=== PATIENT | female | born 1945 | race Caucasian/White ===

== ENCOUNTER 2021-05-17 13:45 | Emergency (ER) | payer OTHER, MEDICARE ==
[~2021-05-17] VITALS: Ht 154.9 cm; Wt 64.9 kg
[2021-05-17] MEDS ORDERED: HYDR1TAB94 PO (15:50)
== END 2021-05-17 16:00 | disposition home or self-care (01) ==
LOC: ER 13:45
DX: M25.561 Pain in right knee (principal); M25.521 Pain in right elbow; I25.2 Old myocardial infarction; W01.0XXA Fall on same level from slipping, tripping and stumbling without subsequent striking against object, initial encounter
CPT/HCPCS: 73070; 73562-RT; 73620; 99283-25

== ENCOUNTER 2023-08-08 14:17 | Emergency (ER) | payer MEDICARE ==
[~2023-08-08] VITALS: Ht 152.4 cm; Wt 56.2 kg
[~2023-08-08 14:17] MED LIST: HYDR1TAB94 PO
[2023-08-08 14:53] VITALS: BP 108/61
[2023-08-08 15:36] LABS: BASOPHILS ABSOLUTE AUTO 0.07 K/mm3 (0.00-0.23); BASOPHILS PERCENT AUTO 1 % (0-2); EOSINOPHILS ABSOLUTE AUTO 0.28 K/mm3 (0.00-0.68); EOSINOPHILS PERCENT AUTO 4 % (0-6); Hematocrit 39.1 % (33.0-51.0); Hemoglobin 12.8 g/dL (11.5-16.0); IMMATURE GRAN ABSOLUTE AUTO 0.03 K/mm3 (0.00-0.10); IMMATURE GRAN PERCENT AUTO 0 % (0-1); LYMPHOCYTES ABSOLUTE AUTO 1.69 K/mm3 (0.84-5.20); LYMPHOCYTES PERCENT AUTO 22 % (21-46); MONOCYTES ABSOLUTE AUTO 0.76 K/mm3 (0.16-1.47); MONOCYTES PERCENT AUTO 10 % (4-13); Mean Corpuscular HGB 28.3 pg (26.0-34.0); Mean Corpuscular HGB Conc 32.7 g/dL (31.5-36.5); Mean Corpuscular Volume 87 fL (80-100); NEUTROPHILS ABSOLUTE AUTO 5.01 K/mm3 (1.96-9.15); NEUTROPHILS PERCENT AUTO 64 % (41-73); Platelet Count 263 K/mm3 (150-400); RDW Coefficient Variation 13.5 % (11.7-14.2); RDW Standard Deviation 42.7 fL (35.1-46.3); Red Blood Cell Count 4.52 M/mm3 (3.80-5.20); White Blood Cell Count 7.84 K/mm3 (4.00-11.30)
[2023-08-08 15:57] LABS: Albumin, Blood 3.5 g/dL (3.4-5.0); Albumin/Globulin Ratio 0.8 (0.8-1.8); Bilirubin, Total 0.5 mg/dL (0.1-1.0); Bun/Creatinine Ratio 15.6 (12.0-20.0); Creatinine, Blood 1.22 mg/dL (0.40-1.00); Globulin, Blood 4.5 g/dL (2.2-4.0); Uric Acid, Blood 7.3 mg/dL (2.6-6.0)
[2023-08-08] MEDS ORDERED: ATORVASTATIN CA20 MG PO (16:15)
[2023-08-08] MEDS ORDERED: PRASUGREL HCL10 MG PO (16:16)
[2023-08-08] MEDS ORDERED: METO25ER PO (16:16)
[2023-08-08] MEDS ORDERED: LISI5 PO (16:16)
[2023-08-08] MEDS ORDERED: IBUP600 PO (16:30)
[2023-08-08] MEDS ORDERED: COLCHICINE0.6 MG PO (16:30)
== END 2023-08-08 16:15 | disposition home or self-care (01) ==
LOC: ER 14:17
PROVIDERS: Emergency Medicine
DX: M10.9 Gout, unspecified (principal); I25.2 Old myocardial infarction; Z88.0 Allergy status to penicillin
CPT/HCPCS: 80053; 84550; 85025; 99283